=== PATIENT | male | born 1960 ===

== ENCOUNTER 2019-02-03 12:42 | Emergency (ER) | payer OTHER ==
[~2019-02-03] VITALS: Ht 180.3 cm; Wt 82.7 kg
[2019-02-03 13:08] LABS: GLUCOSE,POINT OF CARE 237 MG/DL (70-110)
[2019-02-03] MEDS ORDERED: METHOCARBAMOL 500 MG TABLET PO ONE (14:00)
[2019-02-03] MEDS ORDERED: HYDROCODONE/ACETAMINOPHEN 5-325 MG TABLET PO ONE (14:00)
[2019-02-03] MEDS ORDERED: KETOROLAC TROMETHAMINE 60 MG/2 ML VIAL IM ONE (14:00)
[2019-02-03] MEDS ORDERED: LIDOCAINE 5% TRANSDERMAL PATCH TD ONE (14:45)
[2019-02-03 15:42] VITALS: BP 135/89
== END 2019-02-03 16:15 | disposition home or self-care (01) ==
LOC: EDBD 12:49 → EMS 12:49
DX: M54.5 Low back pain (principal); E78.00 Pure hypercholesterolemia, unspecified; E11.9 Type 2 diabetes mellitus without complications; I10 Essential (primary) hypertension; F12.90 Cannabis use, unspecified, uncomplicated; M19.90 Unspecified osteoarthritis, unspecified site
CPT/HCPCS: 82962; 96372; 99284; J1885